=== PATIENT | female | born 1965 | race Caucasian/White ===

== ENCOUNTER 2022-09-25 06:55 | Outpatient (RCR) | payer MEDICARE, MEDICAID, SELFPAY ==
--- NOTE | 2022-08-30 08:11 | CR1_ITS ---
[facility] Test Date: 2022-08-30 Pat Name: Cece Hernandez Department: Room: - Gender: Female Aircraft Engine Technician: : [id number] Requested By: EAGLE MOELLER Order Number: [id number] Tor MD: EAGLE MOELLER Interpretive Statements Session Date: Electronically Signed On 08-31-2022 7:03:04 EDT by EAGLE MOELLER
== END 2022-09-25 15:12 | disposition home or self-care (01) ==
LOC: CR 06:55
DX: I42.9 Cardiomyopathy, unspecified (principal); I25.10 Atherosclerotic heart disease of native coronary artery without angina pectoris; Z95.1 Presence of aortocoronary bypass graft
CPT/HCPCS: 93798